=== PATIENT | male | born 1990 | race Caucasian/White ===

== ENCOUNTER 2017-12-19 21:53 | Emergency (ER) | payer SELFPAY ==
[2017-12-20] MEDS ORDERED: SUCRALFATE 1 GM TABLET PO ONE (00:22)
[2017-12-20] MEDS ORDERED: FAMOTIDINE 20 MG TABLET PO ONE (00:22)
--- NOTE | 2017-12-20 00:26 | ER Document Report ---
HPI - HPI Patient complains to provider of: vomiting Pain Level: Denies Context: Patient is a 26-year-old male comes emergency department for chief complaint of vomiting 3 over the course of today, he states that earlier in the day he had burning and pain in his upper abdomen, he states he thinks he would have vomited a few flecks of blood but he is not sure. He had a normal bowel movement earlier today. He denies any current symptoms. He states he has had reflux problems ever since he was a child, he takes daily omeprazole therapy although he occasionally forgets. He admits to regular smoking and occasional alcohol. He denies any surgeries, denies any medical history otherwise. Past Medical History - General Information source: Patient - Social History Smoking Status: Current Every Day Smoker Smoking Education Provided: Yes - <3 min Frequency of alcohol use: None Drug Abuse: None Lives with: Family Family History: Reviewed & Not Pertinent GI Medical History: Reports: Hx Gastroesophageal Reflux Disease Musculoskeltal Medical History: Reports Hx Musculoskeletal Trauma Surgical Hx: Negative - Immunizations Hx Diphtheria, Pertussis, Tetanus Vaccination: Yes Vertical Provider Document - CONSTITUTIONAL General Appearance: WD/WN, No Apparent Distress - INFECTION CONTROL TRAVEL OUTSIDE OF THE [place] IN LAST 30 DAYS: No - HEENT HEENT: Atraumatic, Normal ENT Exam, Normocephalic - NECK Neck: Normal Inspection - RESPIRATORY Respiratory: Breath Sounds Normal, No Respiratory Distress - CARDIOVASCULAR Cardiovascular: Regular Rate, Regular Rhythm - GI/ABDOMEN Gastrointestinal: Abdomen Soft, Abdomen Non-Tender. negative: Abdominal Guarding - MUSCULOSKELETAL/EXTREMETIES Musculoskeletal/Extremeties: MAEW, FROM, Non-Tender - NEURO Level of Consciousness: Awake, Alert, Appropriate - DERM Integumentary: Warm, Dry, No Rash Course - Re-evaluation Re-evalutation: Non tender abdomen. No current symptoms. Patient showed me some vomit, no definite blood noted, definitely no yashira hematemesis. Discussed with patient ultrasound and labs. This was deferred, patient applying for insurance now, wants to wait. I feel this is appropriate with normal vital signs, no current symptoms, and non-tender abdomen. Provided with therapy, discussed follow-up, discussed return precautions, discussed recommendations in detail. Patient states understanding and agreement. - Vital Signs Vital signs: Temp Pulse Resp BP Pulse Ox 98.8 F 80 18 137/75 H 97 12/19/17 22:21 04/08/18 22:21 12/19/17 22:21 12/19/17 22:21 12/19/17 22:21 Discharge - Discharge Clinical Impression: Epigastric pain GERD (gastroesophageal reflux disease) Qualifiers: Esophagitis presence: esophagitis presence not specified Qualified Code(s): K21.9 - Gastro-esophageal reflux disease without esophagitis Vomiting Qualifiers: Vomiting type: unspecified Vomiting Intractability: non-intractable Nausea presence: with nausea Qualified Code(s): R11.2 - Nausea with vomiting, unspecified Condition: Stable Disposition: HOME, SELF-CARE Additional Instructions: Your symptoms and presentation are most consistent with gastritis, esophagitis, GERD. I recommend that you take the Carafate along with your Prilosec as prescribed, you can take Pepcid, Rolaids, Tums if needed for additional symptom management. Avoid alcohol, smoking, NSAIDs (BC powder, ibuprofen, naproxen, aspirin), you can take Tylenol/acetaminophen if needed. Follow-up with primary care. You might need H. pylori testing or endoscopy for additional evaluation. Return if you worsen including return or uncontrolled vomiting, vomiting blood, black stools, severe pain in the abdomen, or any other concerning or worsening symptoms. Prescriptions: Famotidine [Pepcid 20 mg Tablet] 20 mg PO BID #20 tablet Sucralfate [Carafate 1 gm Tablet] 1 gm PO QID #40 tablet
[2017-12-20 01:15] VITALS: BP 118/84
== END 2017-12-20 01:15 | disposition home or self-care (01) ==
LOC: ER 21:53
DX: K21.9 Gastro-esophageal reflux disease without esophagitis (principal); R11.2 Nausea with vomiting, unspecified; R10.13 Epigastric pain; F17.200 Nicotine dependence, unspecified, uncomplicated; Z71.6 Tobacco abuse counseling; Z79.899 Other long term (current) drug therapy
CPT/HCPCS: 99283

== ENCOUNTER 2019-06-18 19:17 | Emergency (ER) | payer SELFPAY ==
--- NOTE | 2019-06-18 19:34 | ER Document Report ---
ED Medical Screen (RME) - General Chief Complaint: Foot Pain Stated Complaint: RIGHT FOOT PAIN Time Seen by Provider: 06/18/19 19:28 Mode of Arrival: Ambulatory Information source: Patient Notes: 28-year-old male presented to ED for redness swelling and pain to his right foot. He states he was boxing when he was kicked in the foot on Wednesday. He states past Wednesday it had bumped and opened. And he scratched the bumps and the swelling redness became much worse last Wednesday night now his foot is red and swollen and very painful. He states he took 2 BC before coming to rest he would not be able to walk. He states he does have a frequent history of athlete's foot and reflux. He states he has been having chills and sweats yesterday and last night. He states he does smoke a pack a day drinks 1-2. Day and smokes marijuana. He does work in [employer] and [employer] and lives with his family. I have greeted and performed a rapid initial assessment of this patient. A comprehensive ED assessment and evaluation of the patient, analysis of test results and completion of medical decision making process will be conducted by an additional ED providers. TRAVEL OUTSIDE OF THE [place] IN LAST 30 DAYS: No - Related Data Allergies/Adverse Reactions: No Known Allergies Allergy (Verified 06/18/19 19:27) Home Medications: prilosec Past Medical History - Social History Chew tobacco use (# tins/day): No Frequency of alcohol use: Social Drug Abuse: None Renal/ Medical History: Denies: Hx Peritoneal Dialysis GI Medical History: Reports: Hx Gastroesophageal Reflux Disease Musculoskeltal Medical History: Reports Hx Musculoskeletal Trauma - Immunizations Hx Diphtheria, Pertussis, Tetanus Vaccination: Yes Physical Exam - Vital signs Vitals: Temp Pulse Resp BP Pulse Ox 98.3 F 83 18 135/81 H 100 06/18/19 19:21 06/18/19 19:21 06/18/19 19:21 06/18/19 19:21 06/18/19 19:21 Course - Vital Signs Vital signs: Temp Pulse Resp BP Pulse Ox 98.3 F 83 18 135/81 H 100 06/18/19 19:21 06/18/19 19:21 06/18/19 19:21 06/18/19 19:21 06/18/19 19:21
--- NOTE | 2019-06-18 20:00 | RADIOLOGY REPORT (SQ) ---
EXAM DESCRIPTION: FOOT RIGHT COMPLETE COMPLETED DATE/TIME: 06/18/2019 7:38 pm REASON FOR STUDY: pain redness and swelling COMPARISON: None. EXAM PARAMETERS: NUMBER OF VIEWS: Three views. TECHNIQUE: AP, lateral and oblique radiographic images acquired of the right foot. LIMITATIONS: None. FINDINGS: MINERALIZATION: Normal. BONES: No acute fracture or dislocation. No worrisome bone lesions. JOINTS: No effusion. SOFT TISSUES: No significant soft tissue swelling. No radiopaque foreign body. OTHER: No other significant finding. IMPRESSION: NO FRACTURE. TECHNICAL DOCUMENTATION: JOB ID: [id number] [place]-72 2010 [employer]- All Rights Reserved Reading location - IP/workstation name: [email or web address]
[2019-06-18] MEDS ORDERED: CEPHALEXIN 500 MG CAPSULE PO ONE (21:09)
[2019-06-18] MEDS ORDERED: SULFAMETHOXAZOLE/TRIMETHOPRIM 800-160 MG TABLET PO ONE (21:09)
--- NOTE | 2019-06-18 21:15 | ER Document Report ---
HPI - HPI Time Seen by Provider: 06/18/19 19:28 Pain Level: 5 Notes: Patient is a 28-year-old male with no significant past medical history who presents complaining of right dorsal foot redness, pain, and possible infection that started 2 days ago. Patient states that he did have a scab that he was picking at which started to get red thereafter. He has not noticed any red streaks. Denies drug allergies. No history of IV drug abuse or MRSA. Patient states that he does do kickboxing and does not believe that he injured it, but would like an x-ray. Denies any headache, fever, URI, sore throat, chest pain, palpitations, syncope, cough, shortness of breath, wheeze, dyspnea, abdominal pain, nausea/vomiting/diarrhea, urinary retention, dysuria, hematuria, loss of control of bowel or bladder, numbness/tingling, saddle anesthesia, muscle paralysis/weakness, or rash. - ROS Systems Reviewed and Negative: Yes All other systems reviewed and negative - CONSTITUTIONAL Constitutional: DENIES: Chills - REPRODUCTIVE Reproductive: DENIES: : - DERM Skin Color: Erythema Past Medical History - General Information source: Patient - Social History Smoking Status: Current Every Day Smoker Chew tobacco use (# tins/day): No Frequency of alcohol use: Social Drug Abuse: None Family History: Reviewed & Not Pertinent Patient has suicidal ideation: No Patient has homicidal ideation: No Renal/ Medical History: Denies: Hx Peritoneal Dialysis GI Medical History: Reports: Hx Gastroesophageal Reflux Disease Musculoskeletal Medical History: Reports Hx Musculoskeletal Trauma - Immunizations Hx Diphtheria, Pertussis, Tetanus Vaccination: Yes Vertical Provider Document - CONSTITUTIONAL Agree With Documented VS: Yes Notes: PHYSICAL EXAMINATION: GENERAL: Well-appearing, well-nourished and in no acute distress. LUNGS: Breath sounds clear to auscultation bilaterally and equal. No wheezes rales or rhonchi. HEART: Regular rate and rhythm without murmurs, rubs, gallops. Musculoskeletal: Rt foot/ankle: + erythema and mild swelling dorsal foot (3cm diameter). Scant purulent discharge w/o fluctuance or induration. No ecchymosis or deformity. FROM to passive/active. Strength 5+/5. N/V intact distal. No bony tenderness of the foot/ankle. Achilles intact. Lis Franc maneuver neg. Anterior drawer neg. Extremities: No cyanosis, clubbing, or edema b/l. Peripheral pulses 2+. Capillary refill less than 3 seconds. NEUROLOGICAL: Normal speech, normal gait. Normal sensory, motor exams PSYCH: Normal mood, normal affect. SKIN: see above - INFECTION CONTROL TRAVEL OUTSIDE OF THE [place] IN LAST 30 DAYS: No Course - Re-evaluation Re-evalutation: 06/18/19 21:14 Patient is an afebrile, well-hydrated, 28-year-old male who presents to the ED with Rt foot pain/cellulitis. Vitals are acceptable without any significant tachycardia, tachypnea, or hypoxia. PE is otherwise unremarkable for any neurovascular compromise, obvious tendon/ligament rupture, obvious fracture/dislocation, septic joint. Wound culture obtained. No I&D warranted at this time. X-ray was unremarkable for any acute pathology. Patient is nontoxic-appearing. Patient is able to ambulate and weight-bear. No other labs or imaging warranted at this time based on H&P. Rx for keflex/bactrim with first dose given tonight. Conservative measures otherwise for symptoms. Recheck with your PCM in 2-3 days. Return to the ED with any worsening/concerning symptoms otherwise as reviewed in discharge. Patient is in agreement. - Vital Signs Vital signs: Temp Pulse Resp BP Pulse Ox 98.3 F 83 18 135/81 H 100 06/18/19 19:21 06/18/19 19:21 06/18/19 19:21 06/18/19 19:21 06/18/19 19:21 Discharge - Discharge Clinical Impression: Cellulitis of right foot Condition: Stable Disposition: HOME, SELF-CARE Additional Instructions: Keep the skin clean Wash with soap and water Tylenol/ibuprofen if needed Triple antibiotic ointment daily Epsom salt soaks Take medication as directed Monitor for any worsening symptoms Recheck with your PCM in 2-3 days Return to the ED with any worsening symptoms and/or development of fever, headache, chest pain, palpitations, syncope, shortness of breath, trouble breathing, abdominal pain, n/v/d, abscess, purulent discharge, red streaks, worsening swelling, or other worsening symptoms that are concerning to you. Prescriptions: Sulfamethoxazole/Trimethoprim [Bactrim Ds Tablet] 1 each PO BID #20 tablet Cephalexin Monohydrate [Keflex 500 mg Capsule] 500 mg PO TID #30 capsule Forms: Elevated Blood Pressure, Smoking Cessation Education, Return to Work Referrals: [facility] [Provider Group] - Follow up as needed [facility] [Provider Group] - Follow up as needed
[2019-06-18 21:59] VITALS: BP 126/83
== END 2019-06-18 21:38 | disposition home or self-care (01) ==
LOC: ER 19:17
DX: L03.115 Cellulitis of right lower limb (principal); M79.671 Pain in right foot; F17.200 Nicotine dependence, unspecified, uncomplicated
CPT/HCPCS: 87070; 87075; 87077; 87186; 87205; 99283

== ENCOUNTER 2020-02-22 19:04 | Emergency (ER) | payer SELFPAY ==
--- NOTE | 2020-02-22 19:47 | ER Document Report ---
ED Medical Screen (RME) - General Chief Complaint: Abscess Stated Complaint: POSSIBLE SKIN INFECTION Time Seen by Provider: 02/22/20 19:42 Mode of Arrival: Ambulatory Information source: Patient Notes: 29-year-old male presented to ED for skin infection. He states he got a tattoo to his right hand about 10 days ago. He states for his work he had to go with some dirty stagnant water under a house the day after the tattoo. He states soon after that he got an infection to his right hand and then developed sores to the back of his neck and to his right leg. He states last night he was fe eling very odd felt like he was getting super hot and super cold. He states this only lasted for short period time and then he went to sleep. He states he does smoke a pack a day drinks about an average of 2 beers a day and does smoke pot but none in the last couple days. He is alert oriented respirations regular nonlabored at this time. He does have an abscess to the back of the neck and to the right leg. There is some infection to the right hand. I have greeted and performed a rapid initial assessment of this patient. A comprehensive ED assessment and evaluation of the patient, analysis of test results and completion of medical decision making process will be conducted by an additional ED providers. TRAVEL OUTSIDE OF THE [place] IN LAST 30 DAYS: No - Related Data Allergies/Adverse Reactions: No Known Allergies Allergy (Verified 06/18/19 19:27) Past Medical History Renal/ Medical History: Denies: Hx Peritoneal Dialysis GI Medical History: Reports: Hx Gastroesophageal Reflux Disease Musculoskeltal Medical History: Reports Hx Musculoskeletal Trauma - Immunizations Hx Diphtheria, Pertussis, Tetanus Vaccination: Yes Physical Exam - Vital signs Vitals: Temp Pulse Resp BP Pulse Ox 98.7 F 72 16 121/79 99 02/22/20 19:34 02/22/20 19:34 02/22/20 19:34 02/22/20 19:34 02/22/20 19:34 Course - Vital Signs Vital signs: Temp Pulse Resp BP Pulse Ox 98.7 F 72 16 121/79 99 02/22/20 19:34 02/22/20 19:34 02/22/20 19:34 02/22/20 19:34 02/22/20 19:34
[2020-02-22 20:32] LABS: ABSOLUTE BASOPHILS # (AUTO) 0.1 10^3/uL (0.0-0.2); ABSOLUTE EOSINOPHILS # (AUTO) 0.2 10^3/uL (0.0-0.6); ABSOLUTE LYMPHOCYTES (AUTO) 2.6 10^3/uL (0.5-4.7); ABSOLUTE MONOCYTES (AUTO) 0.4 10^3/uL (0.1-1.4); ABSOLUTE NEUT (AUTO) 5.1 10^3/uL (1.7-8.2); BASOPHILS % (AUTO) 0.6 % (0-2); EOSINOPHILS % (AUTO) 2.4 % (0-6); HEMATOCRIT 41.1 % (37.9-51.0); HEMOGLOBIN 14.1 g/dL (13.5-17.0); LYMPHOCYTES % (AUTO) 30.7 % (13-45); MEAN CORPUSCULAR HEMOGLOBIN 31.2 pg (27.0-33.4); MEAN CORPUSCULAR HGB CONC 34.2 g/dL (32.0-36.0); MEAN CORPUSCULAR VOLUME 91 fl (80-97); MONOCYTES % (AUTO) 5.3 % (3-13); PLATELET COUNT 210 10^3/uL (150-450); RED BLOOD COUNT 4.51 10^6/uL (4.35-5.55); RED CELL DISTRIBUTION WIDTH 13.2 % (11.5-14.0); TOTAL CELLS COUNTED % (AUTO) 100 %; WHITE BLOOD COUNT 8.4 10^3/uL (4.0-10.5)
[2020-02-22 20:37] LABS: APPEARANCE,URINE SLIGHTLY-CLOUDY; BILIRUBIN,URINE NEGATIVE (NEGATIVE); COLOR,URINE YELLOW; GLUCOSE, URINE NEGATIVE (NEGATIVE); KETONES,URINE NEGATIVE (NEGATIVE); LEUKOCYTE ESTERASE,URINE NEGATIVE (NEGATIVE); NITRITE,URINE NEGATIVE (NEGATIVE); PROTEIN,URINE NEGATIVE (NEGATIVE); URINE SPECIFIC GRAVITY 1.017; UROBILINOGEN,URINE NEGATIVE mg/dL (<2.0)
[2020-02-22 20:50] LABS: URINE AMPHETAMINES SCREEN NEGATIVE; URINE BARBITURATES SCREEN NEGATIVE; URINE BENZODIAZEPINES SCREEN NEGATIVE; URINE COCAINE SCREEN NEGATIVE; URINE METHADONE SCREEN NEGATIVE; URINE PHENCYCLIDINE SCREEN NEGATIVE
[2020-02-22 20:52] LABS: URINE MARIJUANA (THC) SCREEN UNCONFIRMED POSITIVE
[2020-02-22 20:54] LABS: ALBUMIN 4.4 g/dL (3.5-5.0); ANION GAP 6 (5-19); BLOOD UREA NITROGEN 10 mg/dL (7-20); CALCIUM 9.6 mg/dL (8.4-10.2); CARBON DIOXIDE 29 mmol/L (22-30); CHLORIDE 102 mmol/L (98-107); GLUCOSE 94 mg/dL (75-110); POTASSIUM 4.2 mmol/L (3.6-5.0)
[2020-02-22 20:55] LABS: ALKALINE PHOSPHATASE 79 U/L (38-126); ASPARTATE AMINO TRANSFERASE 23 U/L (17-59); BILIRUBIN,TOTAL 0.3 mg/dL (0.2-1.3); TOTAL PROTEIN 7.3 g/dL (6.3-8.2)
[2020-02-22 20:56] LABS: ALCOHOL < 10 mg/dL (NONE DETECTED)
[2020-02-23] MEDS ORDERED: LIDOCAINE 1%/EPINEPHRINE INJ 20 ML VIAL INJ ONE (01:11)
[2020-02-23] MEDS ORDERED: CEPHALEXIN 500 MG CAPSULE PO ONE (01:11)
[2020-02-23] MEDS ORDERED: SULFAMETHOXAZOLE/TRIMETHOPRIM 800-160 MG TABLET PO ONE (01:11)
--- NOTE | 2020-02-23 01:28 | ER Document Report ---
ED General - General Chief Complaint: Abscess Stated Complaint: POSSIBLE SKIN INFECTION Time Seen by Provider: 02/22/20 19:42 Mode of Arrival: Ambulatory TRAVEL OUTSIDE OF THE [place] IN LAST 30 DAYS: No - HPI Notes: 29-year-old male no significant past medical history presents with abscess on right sow and left neck for several days. 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 Patient had moment today where he felt like he might have had a fever, did not check his temperature. Patient denies any IVDU, measured fever, diabetes, hiv, immunocompromise, patient antibiotics, chest pain, shortness of breath, spontaneous skin lesions, palpitations - Related Data Allergies/Adverse Reactions: No Known Allergies Allergy (Verified 02/22/20 19:47) Home Medications: PRILOSEC. Past Medical History - General Information source: Patient - Social History Smoking Status: Current Every Day Smoker Frequency of alcohol use: None Drug Abuse: None Family History: Reviewed & Not Pertinent Patient has homicidal ideation: No Renal/ Medical History: Denies: Hx Peritoneal Dialysis GI Medical History: Reports: Hx Gastroesophageal Reflux Disease Musculoskeletal Medical History: Reports Hx Musculoskeletal Trauma - Immunizations Hx Diphtheria, Pertussis, Tetanus Vaccination: Yes Review of Systems - Review of Systems Notes: REVIEW OF SYSTEMS: CONSTITUTIONAL : +chills, -sweats. EENT: Denies recent cold/sinus symptoms, denies throat pain CARDIOVASCULAR: Denies chest pain, KIMBERLY RESPIRATORY: Denies cough, denies shortness of breath. GASTROINTESTINAL: Denies abdominal pain, nausea/vomiting. GENITOURINARY: Denies difficulty urinating, painful urination. FEMALE GENITOURINARY: Denies abnormal vaginal bleeding, vaginal discharge. MUSCULOSKELETAL: Denies neck pain, back pain. SKIN: +rash +skin lesions. HEMATOLOGIC : Denies easy bruising or bleeding. LYMPHATIC: Denies swollen, enlarged glands. NEUROLOGICAL: Denies headache, denies change in gait. PSYCHIATRIC: Denies anxiety or stress or depression. Physical Exam - Vital signs Vitals: Temp Pulse Resp BP Pulse Ox 98.7 F 72 16 121/79 99 02/22/20 19:34 02/22/20 19:34 02/22/20 19:34 02/22/20 19:34 02/22/20 19:34 - Notes Notes: PHYSICAL EXAMINATION: GENERAL: Well-appearing, well-nourished and in no acute distress. HEAD: Atraumatic, normocephalic. EYES: Pupils equal round and appropriate constriction, sclera anicteric, conjunctiva are normal. ENT: nares patent, moist mucous membranes. NECK: Normal range of motion, supple without lymphadenopathy LUNGS: Breath sounds clear to auscultation bilaterally and equal. No wheezes rales or rhonchi. HEART: Regular rate and rhythm without murmurs EXTREMITIES: Normal range of motion, approximately 4 x 4 centimeter area of erythema with slight edema and warmth and with a central scab without any fluctuance or active discharge, approximately 3 x 3 cm area of erythema edema and warmth with a central fluctuance on patient's posterior lateral left neck, new tattoo on right forearm with fissured skin with scab without any erythema, no discharge, no crusting, no abnormal warmth NEUROLOGICAL: Awake, alert, conversing appropriately, moves all extremities spontaneously. PSYCH: Normal mood, normal affect. SKIN: Warm, Dry, normal turgor Course - Re-evaluation Re-evalutation: 02/23/20 01:27 Patient presents with 2 areas of cellulitis 1 with abscess that will require I&D, tattoo itself appears to be healing, patient with previous versus cellulitis that appeared similarly in distant past. Labs and blood culture were ordered in triage to expedite care, but these were not necessary for patient symptoms. Possible that APC was considering endocarditis in differential diagnosis, but this is not consistent with patient's presentation and discussed this with patient and appears reliable and denies IV drug use and has no physical evidence of IV drug use. Will give patient Keflex and Bactrim for purulent cellulitis, I&D neck abscess, and discharged with PCP follow-up and return precautions. - Vital Signs Vital signs: Temp Pulse Resp BP Pulse Ox 98.6 F 67 16 146/71 H 96 02/22/20 23:35 02/22/20 23:35 02/22/20 23:35 02/22/20 23:35 02/22/20 23:35 - Laboratory Result Diagrams: 02/22/20 20:13 02/22/20 20:13 Laboratory results interpreted by me: 02/22/20 02/22/20 20:13 20:13 Sodium 136.9 L Lactic Acid 0.6 L Procedures - Incision and Drainage Left Neck Anesthetic type: 1% Lidocaine w/epi I&D procedure: Chlorprep applied Incision Method: Incision made by scalpel Amount/type of drainage: 1ml purulent fluid Adult Head Front/Back picture: 1 - abscess Discharge - Discharge Clinical Impression: Abscess Cellulitis Qualifiers: Site of cellulitis: neck Qualified Code(s): L03.221 - Cellulitis of neck Condition: Stable Disposition: HOME, SELF-CARE Additional Instructions: Abscess You have an abscess (boil). This a pus-forming infection, usually due to staph. Some boils may be left to drain on their own, but most require lancing. From the time the tender lump first appears, it may be three or four days before the abscess is ready to christina. Local heat and rest help at this stage of treatment. An antibiotic may prevent spread of the infection. Once the abscess is opened, packing may be placed into it. This is done so pus is not sealed inside by premature closure of the cavity. The packing will be removed at your follow-up visit or you may be advised to remove it yourself at home. Sometimes this packing must be replaced a few times during healing. The wound will heal with surprisingly little scar. Depending on the size and location of an abscess, healing can take one to four weeks. You may shower and wash the area around the incision site two or three times a day. Antibiotics may be prescribed, but are usually not necessary after an abscess has been drained. If you develop fever, chilling, worsening pain, or increasing swelling in the area, call the doctor or return immediately. Cellulitis You have an infection of your skin and underlying soft tissues called cellulitis. This is due to bacteria, which can enter through any break in the skin, or even through an irritated hair follicle. Untreated, cellulitis will usually worsen. Antibiotics are required. Usually, warm packs or warm soaks, and elevation of the infected area are recommended. You should start getting better within 24 to 36 hours. Most infections respond quickly to the right medication. Follow-up care is important, however, to check for abscess (boil) formation, unsuspected foreign body, or resistant infection. If you develop fever, chills, or if the area of infection is becoming rapidly more swollen or painful, call the doctor at once. Take all antibiotics as prescribed. Follow-up with your family doctor within 1 week. If any point you feel worse including spreading or worsening pain, fever, neck stiffness, confusion, or any other worsening or alarming symptoms please return to the ED immediately. Prescriptions: Sulfamethoxazole/Trimethoprim [Bactrim Ds Tablet] 1 tab PO BID #10 tablet Cephalexin Monohydrate [Keflex 500 mg Capsule] 500 mg PO Q6H 5 Days #20 capsule Referrals: [facility] [Provider Group] - Follow up as needed
[2020-02-23 03:07] VITALS: BP 134/70
== END 2020-02-23 03:07 | disposition home or self-care (01) ==
LOC: ER 19:04
DX: L02.11 Cutaneous abscess of neck (principal); L03.221 Cellulitis of neck; F17.200 Nicotine dependence, unspecified, uncomplicated; R23.4 Changes in skin texture; K21.9 Gastro-esophageal reflux disease without esophagitis; Z79.899 Other long term (current) drug therapy
CPT/HCPCS: 99283; 36415; 80307 ×2; 83605; 85025; 80053; 81001; 10060; J3490

== ENCOUNTER 2020-05-25 09:22 | Emergency (ER) | payer SELFPAY ==
--- NOTE | 2020-05-25 10:12 | ER Document Report ---
ED General - General Chief Complaint: Abscess Stated Complaint: RIGHT LEG PAIN Time Seen by Provider: 05/25/20 10:10 Mode of Arrival: Ambulatory Information source: Patient Notes: 05/25/20 09:54 - Nursing Note by RIANNA MUNIZ Num: [id number] : 1990 Patient Age: 29 Pt arrives to ed room 14 with a steady gait. Pt states that he is here for possible MRSA. PT states that he has an abscess to the right calf, pt states that last week he "popped" and drained this multiple times. Pt reports that he drained infection and blood. Pt states that this area is no longer draining and is healing. The area does appear to be healing with only mild redness and inflammation seen. Pt states that he has had three areas with the same s/s in the last year and when he googled his s/s he read his s/s are consistent with MRSA. Pt states that he was seen here for his previous abscesses and blood work was done with all normal results, he voices concern that we missed something and that he has an "immune system issue" because this is the third abscess in a year. Pt reports first case was to the right foot and the second was to the right sow. Pt denies having a PCP. Pt denies fever/chills. Pt has nad. Pt is a&ox4 with e/u respirations. 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 He first got it on his right dorsal foot while working as an electrician machine shop. He thought it was a spider bite and it soon progressed to a right tibial lesion and right forearm lesion. He arrives today for his third MRSA abscess on his right calf which is now healing and status post drainage. He reports he incised the wound himself and caused it to drain and now is on the healing phase but cannot understand why he gets them so often. He also associates a left eye stye when he had his second bout of MRSA. I advised him of the nature of MRSA and the drug resistance and the fact that it can travel with white blood cells and its ability to stay in the nose. I also advised him to wash with Hibiclens and apply Bactroban to nose and take Keflex and Septra. TRAVEL OUTSIDE OF THE [place] IN LAST 30 DAYS: No - HPI Onset: Last week Onset/Duration: Sudden, Better Quality of pain: Achy Severity: Mild Pain Level: 1 Associated symptoms: None Exacerbated by: Denies Relieved by: Denies Similar symptoms previously: No Recently seen / treated by doctor: No - Related Data Allergies/Adverse Reactions: No Known Allergies Allergy (Verified 02/22/20 19:47) Past Medical History - General Information source: Patient - Social History Smoking Status: Current Every Day Smoker Cigarette use (# per day): Yes Chew tobacco use (# tins/day): No Smoking Education Provided: Yes Frequency of alcohol use: Social Drug Abuse: Marijuana Lives with: Family - Has a family and children but none of them have any MRSA lesions at this time. Family History: Reviewed & Not Pertinent Patient has suicidal ideation: No Patient has homicidal ideation: No Pulmonary Medical History: Reports: Hx Asthma - as a child Renal/ Medical History: Denies: Hx Peritoneal Dialysis GI Medical History: Reports: Hx Gastroesophageal Reflux Disease Musculoskeletal Medical History: Reports Hx Musculoskeletal Trauma - Immunizations Hx Diphtheria, Pertussis, Tetanus Vaccination: Yes Review of Systems - Review of Systems Constitutional: No symptoms reported EENT: No symptoms reported Cardiovascular: No symptoms reported Respiratory: No symptoms reported Gastrointestinal: No symptoms reported Genitourinary: No symptoms reported Male Genitourinary: No symptoms reported Musculoskeletal: No symptoms reported Skin: See HPI, Other - Right calf abscess approximately 5 cm diameter in a healing phase with a central 0.5 erosion Hematologic/Lymphatic: No symptoms reported Neurological/Psychological: No symptoms reported Physical Exam - Vital signs Vitals: Temp Pulse Resp BP Pulse Ox 98.9 F 81 18 121/73 99 05/25/20 09:26 05/25/20 09:26 05/25/20 09:26 05/25/20 09:26 05/25/20 09:26 Interpretation: Normal - General General appearance: Appears well, Alert - HEENT Head: Normocephalic, Atraumatic Eyes: Normal Pupils: PERRL Sinus: Normal Mouth/Lips: Normal Mucous membranes: Normal Pharynx: Normal Neck: Normal - Respiratory Respiratory status: No respiratory distress Chest status: Nontender Breath sounds: Normal Chest palpation: Normal - Cardiovascular Rhythm: Regular Heart sounds: Normal auscultation Murmur: No - Abdominal Inspection: Normal Distension: No distension Bowel sounds: Normal Tenderness: Nontender Organomegaly: No organomegaly - Rectal Prostate: Other - deferred - Genitourinary Scrotum: Other - deferred - Back Back: Normal - Extremities General upper extremity: Normal inspection General lower extremity: Normal inspection, Other - except for right calf lesion (also lesions old to r FA /r foot )Right calf abscess approximately 5 cm diameter in a healing phase with a central 0.5 erosion - Neurological Neuro grossly intact: Yes Cognition: Normal Orientation: AAOx4 [place] Coma Scale Eye Opening: Spontaneous [place] Coma Scale Verbal: Oriented [place] Coma Scale Motor: Obeys Commands [place] Coma Scale Total: 15 Speech: Normal Motor strength normal: LUE, RUE, LLE, RLE Sensory: Normal - Psychological Associated symptoms: Normal affect - Skin Skin Temperature: Warm Skin Moisture: Dry Skin Color: Other - Right calf abscess approximately 5 cm diameter in a healing phase with a central 0.5 erosion Course - Vital Signs Vital signs: Temp Pulse Resp BP Pulse Ox 98.9 F 81 18 121/73 99 05/25/20 09:26 05/25/20 09:26 05/25/20 09:26 05/25/20 09:26 05/25/20 09:26 Discharge - Discharge Clinical Impression: Skin abscess Condition: Good Disposition: HOME, SELF-CARE Additional Instructions: Wash skin with Hibiclens monthly return to ER as needed take medicines as directed apply Bactroban or bacitracin to your nose nightly for 5 nights if lesions appear. Prescriptions: Chlorhexidine Gluconate [Antiseptic Skin Cleanser] 5 ml TP DAILY PRN #1 bottle PRN Reason: Sulfamethoxazole/Trimethoprim [Bactrim Ds Tablet] 1 tab PO BID #20 tablet Mupirocin [Bactroban 2% Ointment 22 gm] 1 applic NASL HSP PRN #1 tube PRN Reason: Cephalexin Monohydrate [Keflex 500 mg Capsule] 500 mg PO BID 10 Days #20 capsule Forms: Return to Work
[2020-05-25 11:16] VITALS: BP 119/74
== END 2020-05-25 11:13 | disposition home or self-care (01) ==
LOC: ER 09:22
DX: L02.415 Cutaneous abscess of right lower limb (principal); F17.210 Nicotine dependence, cigarettes, uncomplicated; Z86.14 Personal history of Methicillin resistant Staphylococcus aureus infection
CPT/HCPCS: 99283